=== PATIENT | female | born 1995 | race Hispanic/Latino ===

== ENCOUNTER 2017-09-17 05:10 | Emergency (ER) | payer SELFPAY ==
[2017-09-17] MEDS ORDERED: LIDOCAINE HCL 1% 20 ML VIAL ONE (05:19)
== END 2017-09-17 05:35 | disposition home or self-care (01) ==
LOC: EDH 05:10
DX: K13.0 Diseases of lips (principal); J45.909 Unspecified asthma, uncomplicated; Z88.0 Allergy status to penicillin
CPT/HCPCS: 10060

== ENCOUNTER 2017-10-12 00:37 | Emergency (ER) | payer SELFPAY | END 2017-10-12 01:27 | disposition home or self-care (01) | LOC: EDH 00:37 | DX: K64.9 Unspecified hemorrhoids (principal); J45.909 Unspecified asthma, uncomplicated; Z88.0 Allergy status to penicillin | CPT/HCPCS: 99281 ==

== ENCOUNTER 2019-08-02 21:38 | Emergency (ER) | payer OTHER ==
[2019-08-02 22:04] LABS: APPEARANCE,URINE Clear (CLEAR); BILIRUBIN,URINE Negative (NEGATIVE); COLOR,URINE Yellow (YELLOW); GLUCOSE, URINE (UA) Negative (NEGATIVE); KETONES,URINE Negative (NEGATIVE); LEUKOCYTE ESTERASE ,URINE Moderate (NEGATIVE); NITRATE,URINE Negative (NEGATIVE); OCCULT BLOOD,URINE Trace (NEGATIVE); PROTEIN,URINE Trace mg/dL (NEGATIVE)
[2019-08-02 22:12] LABS: HCG,QUAL RESULT NEGATIVE (NEGATIVE)
[2019-08-02 22:16] LABS: RAPID GROUP A STREP NEGATIVE (NEGATIVE)
[2019-08-02 22:30] LABS: BACTERIA,URINE Few /HPF (None Seen); MUCUS,URINE Rare LPF (None Seen); RBC,URINE 0-1 /HPF (0-1); SQUAMOUS EPITHELIAL CELL,UR Moderate /HPF (0-2)
[2019-08-02] MEDS ORDERED: ACETAMINOPHEN 325 MG TAB ONE (22:35)
[2019-08-02] MEDS ORDERED: IBUPROFEN 400 MG TABLET ONE (22:35)
[2019-08-02] MEDS ORDERED: IBUPROFEN 200 MG TAB ONE (22:36)
== END 2019-08-02 22:56 | disposition home or self-care (01) ==
LOC: EDH 21:38
DX: J09.X2 Influenza due to identified novel influenza A virus with other respiratory manifestations (principal); N30.00 Acute cystitis without hematuria; J45.909 Unspecified asthma, uncomplicated; Z88.0 Allergy status to penicillin
CPT/HCPCS: 81001; 81025; 87088; 87804; 87880

== ENCOUNTER 2021-02-23 14:45 | Emergency (ER) | payer OTHER ==
[~2021-02-23] VITALS: Ht 154.9 cm; Wt 68.0 kg
[2021-02-23 14:47] VITALS: BP 103/60
[2021-02-23 16:30] LABS: BASOPHILS % (AUTO) 0.4 % (0.0-5.0); EOSINOPHILS % (AUTO) 1.7 % (0.0-8.0); HEMATOCRIT 41.8 % (36-48); LYMPHOCYTES % (AUTO) 23.9 % (21.0-51.0); MEAN CORPUSCULAR HEMOGLOBIN 30.8 pg (27.0-33.0); MEAN CORPUSCULAR VOLUME 93.3 fL (79-99); NEUTROPHILS % (AUTO) 66.7 % (40.0-77.0); PLATELET COUNT (AUTO) 296 K/uL (130-400); RED BLOOD CELL COUNT(AUTO) 4.48 MIL/uL (4.00-5.50); RED CELL DISTRIBUTION WIDTH 11.9 % (11.0-15.5); WHITE BLOOD COUNT (AUTO) 7.5 K/uL (4.8-10.8)
[2021-02-23] MEDS ORDERED: ACETAMINOPHEN 500 MG TABLET PO ONE (18:00)
[2021-02-23 18:06] LABS: APPEARANCE,URINE Clear (CLEAR); BILIRUBIN,URINE Negative (NEGATIVE); COLOR,URINE Yellow (YELLOW); GLUCOSE, URINE (UA) Negative (NEGATIVE); KETONES,URINE Negative (NEGATIVE); LEUKOCYTE ESTERASE ,URINE Moderate (NEGATIVE); NITRATE,URINE Negative (NEGATIVE); OCCULT BLOOD,URINE Large (NEGATIVE); PH,URINE 6.5 (5.0-8.0); PROTEIN,URINE Trace mg/dL (NEGATIVE)
[2021-02-23 18:33] LABS: BACTERIA,URINE Few /HPF (None Seen)
[2021-02-23 18:34] LABS: SQUAMOUS EPITHELIAL CELL,UR Few /HPF (0-2)
[2021-02-23 18:36] LABS: MUCUS,URINE Few LPF (None Seen)
[2021-02-23] MEDS ORDERED: NITROFURANTOIN MONOHYD/M-CRYST 100 MG CAPSULE PO SCH (18:45)
[2021-02-23 18:52] LABS: CREATININE 0.7 mg/dL (0.5-1.5); POTASSIUM 3.9 mmol/L (3.5-5.1)
[2021-02-23 19:03] LABS: ALBUMIN 3.8 g/dL (3.5-5.0); BILIRUBIN,TOTAL 0.3 mg/dL (0.2-1.0); TOTAL PROTEIN, SERUM 7.3 g/dL (6.0-8.3)
[2021-02-23 19:05] VITALS: BP 103/60
[2021-02-23] MEDS ORDERED: NITR100C4 PO (19:19)
[2021-02-23] MEDS ORDERED: ACET-3194 PO (19:19)
[2021-02-23] MEDS ORDERED: ACETAMINOPHEN 500 MG TABLET ONE (19:24)
== END 2021-02-23 19:28 | disposition home or self-care (01) ==
LOC: EDH 14:45
DX: O20.0 Threatened abortion (principal); O23.41 Unspecified infection of urinary tract in pregnancy, first trimester; O99.511 Diseases of the respiratory system complicating pregnancy, first trimester; J45.909 Unspecified asthma, uncomplicated; Z3A.01 Less than 8 weeks gestation of pregnancy
CPT/HCPCS: 36415; 76801; 80053; 81001; 84702; 84703; 85025; 86850; 86900; 86901; 87088

== ENCOUNTER 2021-06-27 12:48 | Emergency (ER) | payer MEDICAID, OTHER ==
[~2021-06-27] VITALS: Ht 154.9 cm; Wt 65.3 kg
[~2021-06-27 12:48] MED LIST: ACET-3194 PO; NITR100C4 PO
[2021-06-27 13:08] LABS: HEMATOCRIT 41.1 % (36-48); MEAN CORPUSCULAR HEMOGLOBIN 31.4 pg (27.0-33.0); MEAN CORPUSCULAR HGB CONC 34.5 g/dL (32.0-36.0); MEAN CORPUSCULAR VOLUME 90.9 fL (79-99); RED BLOOD CELL COUNT(AUTO) 4.52 MIL/uL (4.00-5.50); RED CELL DISTRIBUTION WIDTH 11.8 % (11.0-15.5); WHITE BLOOD COUNT (AUTO) 11.6 K/uL (4.8-10.8)
[2021-06-27 13:14] LABS: APPEARANCE,URINE CLEAR (CLEAR); BILIRUBIN,URINE NEGATIVE (NEGATIVE); COLOR,URINE YELLOW (YELLOW); GLUCOSE, URINE (UA) NEGATIVE (NEGATIVE); KETONES,URINE 5 mg/dL (NEGATIVE); LEUKOCYTE ESTERASE ,URINE LARGE (NEGATIVE); NITRATE,URINE NEGATIVE (NEGATIVE); OCCULT BLOOD,URINE TRACE-INTACT (NEGATIVE); PROTEIN,URINE NEGATIVE (NEGATIVE); UROBILINOGEN,URINE 0.2 mg/dL (0.2-1.0)
[2021-06-27 13:20] LABS: HCG,QUAL RESULT POSITIVE (NEGATIVE)
[2021-06-27 13:21] LABS: AMPHET/METH SCREEN,URINE NEGATIVE (NEGATIVE); BARBITURATE SCREEN, URINE NEGATIVE (NEGATIVE); BENZODIAZEPINES SCREEN,URINE NEGATIVE (NEGATIVE); CANNABINOID SCREEN,URINE POSITIVE (NEGATIVE); COCAINE SCREEN,URINE NEGATIVE (NEGATIVE); OPIATE SCREEN,URINE NEGATIVE (NEGATIVE); PHENCYCLIDINE SCREEN,URINE NEGATIVE (NEGATIVE)
[2021-06-27 13:22] LABS: CREATININE 0.6 mg/dL (0.5-1.5); POTASSIUM 3.7 mmol/L (3.5-5.1)
[2021-06-27 13:27] LABS: ALBUMIN 3.6 g/dL (3.5-5.0); BILIRUBIN,TOTAL 0.2 mg/dL (0.2-1.0); TOTAL PROTEIN, SERUM 7.6 g/dL (6.0-8.3)
[2021-06-27 13:35] LABS: RBC,URINE 0-1 /HPF (0-1)
[2021-06-27 13:36] LABS: BACTERIA,URINE Moderate /HPF (None Seen)
[2021-06-27] MEDS ORDERED: ONDANSETRON 4MG INJ ONE (15:21)
[2021-06-27] MEDS ORDERED: LACTATED RINGERS 1000ML 1,000 ML IV ONE (16:20)
[2021-06-27] MEDS ORDERED: ONDANSETRON 4MG INJ IVP ONE (16:20)
[2021-06-27] MEDS ORDERED: DOXY1TAB8 PO (17:55)
[2021-06-27] MEDS ORDERED: CEPH500B PO (17:55)
[2021-06-27 18:10] VITALS: BP 108/60
== END 2021-06-27 18:11 | disposition home or self-care (01) ==
LOC: EDH 12:48
DX: O23.41 Unspecified infection of urinary tract in pregnancy, first trimester (principal); O21.0 Mild hyperemesis gravidarum; O99.281 Endocrine, nutritional and metabolic diseases complicating pregnancy, first trimester; E86.0 Dehydration; O99.511 Diseases of the respiratory system complicating pregnancy, first trimester; J45.909 Unspecified asthma, uncomplicated; Z79.899 Other long term (current) drug therapy; Z3A.08 8 weeks gestation of pregnancy
CPT/HCPCS: 36415; 76801; 80053; 80305; 81001; 81025; 84702; 85027; 87088; 96374; 99284; J2405

== ENCOUNTER 2022-08-16 11:21 | Emergency (ER) | payer MEDICAID ==
[~2022-08-16] VITALS: Ht 154.9 cm; Wt 79.8 kg
[~2022-08-16 11:21] MED LIST changes: +CEPH500B PO; +DOXY1TAB8 PO
[2022-08-16 12:06] VITALS: BP 119/73
[2022-08-16] MEDS ORDERED: P-EP-94 PO (14:48)
[2022-08-16] MEDS ORDERED: ONDA4TAB10 PO (14:48)
[2022-08-16] MEDS ORDERED: IBUP-2070 PO (14:48)
[2022-08-16] MEDS ORDERED: GUAIF10 PO (14:48)
== END 2022-08-16 15:40 | disposition home or self-care (01) ==
LOC: EDH 11:21
DX: U07.1 COVID-19 (principal); J45.909 Unspecified asthma, uncomplicated; Z88.0 Allergy status to penicillin; Z79.899 Other long term (current) drug therapy; Z98.890 Other specified postprocedural states
CPT/HCPCS: 99283; 87635; 87880; 87804 ×2; C9803

== ENCOUNTER 2023-03-09 10:58 | Emergency (ER) | payer MEDICAID ==
[~2023-03-09] VITALS: Ht 154.9 cm; Wt 78.9 kg
[~2023-03-09 10:58] MED LIST changes: +GUAIF10 PO; +IBUP-2070 PO; +ONDA4TAB10 PO; +P-EP-94 PO
[2023-03-09 10:59] VITALS: BP 133/73
[2023-03-09] MEDS ORDERED: 0.9%NACL 1000ML 1,000 ML IV ONE (11:30)
[2023-03-09] MEDS ORDERED: DEXAMETHASONE SOD PHOSPHATE 4 MG/ML 1ML VIAL IVP ONE (11:30)
[2023-03-09] MEDS ORDERED: PRED20TA3 PO (11:59)
[2023-03-09] MEDS ORDERED: AZIT500T2 PO (11:59)
[2023-03-09] MEDS ORDERED: DEXAMETHASONE SOD PHOSPHATE 4 MG/ML 1ML VIAL IM ONE (12:00)
[2023-03-09] MEDS ORDERED: AZITHROMYCIN 250 MG TABLET PO ONE (12:00)
== END 2023-03-09 12:20 | disposition home or self-care (01) ==
LOC: EDH 10:58
DX: J02.0 Streptococcal pharyngitis (principal); J45.909 Unspecified asthma, uncomplicated; Z79.899 Other long term (current) drug therapy; Z98.890 Other specified postprocedural states; Z88.0 Allergy status to penicillin
CPT/HCPCS: 99283; 87880; 96372; J1100